=== PATIENT | female | born 1995 | race Hispanic/Latino ===

== ENCOUNTER 2018-11-05 16:07 | Emergency (ER) | payer MEDICAID ==
[~2018-11-05 16:07] MED LIST: PNV91TAB3 PO
[2018-11-05 16:35] LABS: APPEARANCE,URINE Turbid (CLEAR); BILIRUBIN,URINE Moderate (NEGATIVE); GLUCOSE, URINE (UA) Negative (NEGATIVE); KETONES,URINE >=80 mg/dL (NEGATIVE); LEUKOCYTE ESTERASE ,URINE Large (NEGATIVE); NITRATE,URINE Positive (NEGATIVE); OCCULT BLOOD,URINE Moderate (NEGATIVE); PROTEIN,URINE 300 (NEGATIVE)
[2018-11-05 16:36] LABS: COLOR,URINE Orange (YELLOW)
[2018-11-05 16:43] LABS: BACTERIA,URINE Few /HPF (None Seen)
[2018-11-05 16:44] LABS: WBC,URINE 26-50 /HPF (0-1)
[2018-11-05 16:45] LABS: SQUAMOUS EPITHELIAL CELL,UR Rare /HPF (0-2)
== END 2018-11-05 17:44 | disposition home or self-care (01) ==
LOC: EDH 16:07
DX: O23.42 Unspecified infection of urinary tract in pregnancy, second trimester (principal); Z3A.17 17 weeks gestation of pregnancy
CPT/HCPCS: 81001; 87088

== ENCOUNTER 2019-04-07 20:18 | Observation (INO) | payer MEDICAID ==
[2019-04-07 21:34] LABS: APPEARANCE,URINE Clear (CLEAR); BILIRUBIN,URINE Small (NEGATIVE); COLOR,URINE Dark Yellow (YELLOW); GLUCOSE, URINE (UA) Negative (NEGATIVE); KETONES,URINE Negative (NEGATIVE); LEUKOCYTE ESTERASE ,URINE Moderate (NEGATIVE); NITRATE,URINE Negative (NEGATIVE); OCCULT BLOOD,URINE Negative (NEGATIVE); PH,URINE 6.5 (5.0-8.0); PROTEIN,URINE Negative (NEGATIVE)
[2019-04-07 22:20] LABS: BACTERIA,URINE Few /HPF (None Seen); MUCUS,URINE Few LPF (None Seen); RBC,URINE None Seen /HPF (0-1)
== END 2019-04-07 22:00 | disposition home or self-care (01) ==
LOC: EDH 20:18 → LDH 20:19
DX: O26.893 Other specified pregnancy related conditions, third trimester (principal); R10.9 Unspecified abdominal pain; Z3A.38 38 weeks gestation of pregnancy
CPT/HCPCS: 81001; 99284; G0378 ×2

== ENCOUNTER 2020-01-20 23:16 | Emergency (ER) | payer MEDICAID, OTHER | END 2020-01-21 00:25 | disposition home or self-care (01) | LOC: EDH 23:16 | DX: O99.89 Other specified diseases and conditions complicating pregnancy, childbirth and the puerperium (principal); Z00.00 Encounter for general adult medical examination without abnormal findings; Z3A.12 12 weeks gestation of pregnancy ==

== ENCOUNTER 2020-01-30 11:59 | Emergency (ER) | payer OTHER ==
[2020-01-30 13:53] LABS: BASOPHILS % (AUTO) 0.2 % (0.0-5.0); EOSINOPHILS % (AUTO) 0.7 % (0.0-8.0); HEMATOCRIT 33.6 % (36-48); MEAN CORPUSCULAR HEMOGLOBIN 21.1 pg (27.0-33.0); MEAN CORPUSCULAR HGB CONC 30.1 g/dL (32.0-36.0); MEAN CORPUSCULAR VOLUME 70.3 fL (79-99); MONOCYTES % (AUTO) 6.7 % (3.0-13.0); NEUTROPHILS % (AUTO) 78.2 % (40.0-77.0); PLATELET COUNT (AUTO) 251 K/uL (130-400); RED BLOOD CELL COUNT(AUTO) 4.78 MIL/uL (4.00-5.50); RED CELL DISTRIBUTION WIDTH 16.5 % (11.0-15.5); WHITE BLOOD COUNT (AUTO) 8.1 K/uL (4.8-10.8)
[2020-01-30 14:00] LABS: CREATININE 0.5 mg/dL (0.5-1.5); POTASSIUM 3.2 mmol/L (3.5-5.1)
[2020-01-30 14:06] LABS: APPEARANCE,URINE Turbid (CLEAR); BILIRUBIN,URINE Negative (NEGATIVE); COLOR,URINE Yellow (YELLOW); GLUCOSE, URINE (UA) Negative (NEGATIVE); KETONES,URINE Negative (NEGATIVE); LEUKOCYTE ESTERASE ,URINE Large (NEGATIVE); NITRATE,URINE Positive (NEGATIVE); OCCULT BLOOD,URINE Moderate (NEGATIVE); PH,URINE 5.5 (5.0-8.0); PROTEIN,URINE POS 2+ mg/dL (NEGATIVE); UROBILINOGEN,URINE 0.2 mg/dL (0.2-1.0)
[2020-01-30 14:14] LABS: BACTERIA,URINE Few /HPF (None Seen); RBC,URINE 0-1 /HPF (0-1); WBC,URINE >100 /HPF (0-1)
[2020-01-30 14:15] LABS: SQUAMOUS EPITHELIAL CELL,UR Rare /HPF (0-2)
[2020-01-30 14:25] LABS: ALBUMIN 3.4 g/dL (3.5-5.0); BILIRUBIN,TOTAL 0.4 mg/dL (0.2-1.0); TOTAL PROTEIN, SERUM 7.5 g/dL (6.0-8.3)
[2020-01-30] MEDS ORDERED: POTASSIUM CHLORIDE 20 MEQ ERTAB PO ONE (14:47)
== END 2020-01-30 14:53 | disposition home or self-care (01) ==
LOC: EDH 11:59
DX: O23.41 Unspecified infection of urinary tract in pregnancy, first trimester (principal); O26.891 Other specified pregnancy related conditions, first trimester; E87.6 Hypokalemia; Z79.899 Other long term (current) drug therapy; Z87.891 Personal history of nicotine dependence; Z3A.13 13 weeks gestation of pregnancy
CPT/HCPCS: 36415; 76801; 80053; 81001; 83690; 84702; 85025; 86900; 86901

== ENCOUNTER 2020-07-08 14:52 | Observation (INO) | payer MEDICAID ==
[~2020-07-08] VITALS: Ht 167.6 cm; Wt 85.3 kg
[2020-07-08] MEDS ORDERED: LACTATED RINGERS 1000ML IV PRN (15:15)
[2020-07-08 15:41] LABS: BASOPHILS % (AUTO) 0.2 % (0.0-5.0); EOSINOPHILS % (AUTO) 1.6 % (0.0-8.0); HEMATOCRIT 26.3 % (36-48); MEAN CORPUSCULAR HEMOGLOBIN 17.1 pg (27.0-33.0); MEAN CORPUSCULAR HGB CONC 27.8 g/dL (32.0-36.0); MEAN CORPUSCULAR VOLUME 61.6 fL (79-99); NEUTROPHILS % (AUTO) 74.5 % (40.0-77.0); NUCLEATED RED BLOOD CELLS 0.4 % (0.0-0.19); PLATELET COUNT (AUTO) 278 K/uL (130-400); RED BLOOD CELL COUNT(AUTO) 4.27 MIL/uL (4.00-5.50); RED CELL DISTRIBUTION WIDTH 18.9 % (11.0-15.5); WHITE BLOOD COUNT (AUTO) 8.6 K/uL (4.8-10.8)
[2020-07-08 15:45] LABS: APPEARANCE,URINE Clear (CLEAR); BILIRUBIN,URINE Small (NEGATIVE); COLOR,URINE Dark Yellow (YELLOW); GLUCOSE, URINE (UA) Negative (NEGATIVE); KETONES,URINE Negative (NEGATIVE); LEUKOCYTE ESTERASE ,URINE Small (NEGATIVE); NITRATE,URINE Negative (NEGATIVE); OCCULT BLOOD,URINE Negative (NEGATIVE); PROTEIN,URINE Trace mg/dL (NEGATIVE)
[2020-07-08 15:50] LABS: AMPHET/METH SCREEN,URINE NEGATIVE (NEGATIVE); BARBITURATE SCREEN, URINE NEGATIVE (NEGATIVE); BENZODIAZEPINES SCREEN,URINE NEGATIVE (NEGATIVE); CANNABINOID SCREEN,URINE NEGATIVE (NEGATIVE); COCAINE SCREEN,URINE NEGATIVE (NEGATIVE); OPIATE SCREEN,URINE NEGATIVE (NEGATIVE); PHENCYCLIDINE SCREEN,URINE NEGATIVE (NEGATIVE)
[2020-07-08 15:53] LABS: CREATININE 0.5 mg/dL (0.5-1.5); POTASSIUM 3.8 mmol/L (3.5-5.1)
[2020-07-08 15:54] LABS: BACTERIA,URINE Moderate /HPF (None Seen)
[2020-07-08 15:54] LABS: INR 0.87 (0.85-1.15); PARTIAL THROMBOPLASTIN TIME 23.3 SEC (26.3-35.5); PROTHROMBIN TIME 9.4 SEC (9.6-11.6)
[2020-07-08 15:55] LABS: MUCUS,URINE Moderate LPF (None Seen); SQUAMOUS EPITHELIAL CELL,UR Many /HPF (0-2)
[2020-07-08 15:58] LABS: ALBUMIN 2.5 g/dL (3.5-5.0); BILIRUBIN,TOTAL 0.5 mg/dL (0.2-1.0); TOTAL PROTEIN, SERUM 6.8 g/dL (6.0-8.3); URIC ACID 1.8 mg/dL (2.6-7.2)
[2020-07-08 16:00] VITALS: BP 137/88
== END 2020-07-08 16:46 | disposition home or self-care (01) ==
LOC: EDH 14:52 → LDH 14:53
PROVIDERS: ADMIT Obstetrics & Gynecology; ATTEND Obstetrics & Gynecology
DX: O26.893 Other specified pregnancy related conditions, third trimester (principal); R03.0 Elevated blood-pressure reading, without diagnosis of hypertension; Z3A.36 36 weeks gestation of pregnancy
CPT/HCPCS: 36415; 80053; 80305; 81001; 84550; 85025; 85384; 85610; 85730; 87088; 99284; G0378 ×2

== ENCOUNTER 2020-07-25 19:51 | Observation (INO) | payer MEDICAID ==
[~2020-07-25] VITALS: Ht 167.6 cm; Wt 89.8 kg
[2020-07-25 20:28] VITALS: BP 134/91
[2020-07-25 20:30] LABS: APPEARANCE,URINE Cloudy (CLEAR); BILIRUBIN,URINE Negative (NEGATIVE); COLOR,URINE Yellow (YELLOW); GLUCOSE, URINE (UA) Negative (NEGATIVE); KETONES,URINE Negative (NEGATIVE); LEUKOCYTE ESTERASE ,URINE Moderate (NEGATIVE); NITRATE,URINE Negative (NEGATIVE); OCCULT BLOOD,URINE Negative (NEGATIVE); PROTEIN,URINE Negative (NEGATIVE)
[2020-07-25 20:39] LABS: BACTERIA,URINE Few /HPF (None Seen); RBC,URINE 0-1 /HPF (0-1); SQUAMOUS EPITHELIAL CELL,UR Moderate /HPF (0-2)
[2020-07-25 20:40] LABS: YEAST,URINE BUDDING Few /HPF (None Seen)
[2020-07-25 20:41] LABS: MUCUS,URINE Rare LPF (None Seen)
== END 2020-07-25 21:25 | disposition home or self-care (01) ==
LOC: EDH 19:51 → LDH 20:04
PROVIDERS: ADMIT Obstetrics & Gynecology; ATTEND Obstetrics & Gynecology
DX: O26.893 Other specified pregnancy related conditions, third trimester (principal); O62.9 Abnormality of forces of labor, unspecified; R10.2 Pelvic and perineal pain; N89.8 Other specified noninflammatory disorders of vagina; Z3A.38 38 weeks gestation of pregnancy
CPT/HCPCS: 81001; 87088; 99284; G0378

== ENCOUNTER 2020-07-27 22:37 | Inpatient (IN) | payer MEDICAID ==
[~2020-07-27] VITALS: Ht 167.6 cm; Wt 89.8 kg
[2020-07-27] MEDS ORDERED: AMPICILLIN 2GM+NS 100ML 100 ML IV SCH (22:45)
[2020-07-27] MEDS ORDERED: OXYTOCIN-LR 20 UNITS/1000 ML 1,000 ML IV SCH (22:45)
[2020-07-27 23:30] VITALS: BP 123/82
[2020-07-27 23:30] LABS: BILIRUBIN,URINE Small (NEGATIVE); COLOR,URINE Dark Yellow (YELLOW); GLUCOSE, URINE (UA) Negative (NEGATIVE); KETONES,URINE Trace mg/dL (NEGATIVE); LEUKOCYTE ESTERASE ,URINE Trace (NEGATIVE); NITRATE,URINE Negative (NEGATIVE); OCCULT BLOOD,URINE Negative (NEGATIVE); PROTEIN,URINE Trace mg/dL (NEGATIVE)
[2020-07-27 23:32] LABS: APPEARANCE,URINE HAZY (CLEAR)
[2020-07-27] MEDS: LACTATED RINGERS 1000ML 1,000 ML IV PRN (23:32)
[2020-07-27 23:45] LABS: MEAN CORPUSCULAR HEMOGLOBIN 18.9 pg (27.0-33.0); MEAN CORPUSCULAR HGB CONC 28.3 g/dL (32.0-36.0); MEAN CORPUSCULAR VOLUME 66.7 fL (79-99); NUCLEATED RED BLOOD CELLS 0.8 % (0.0-0.19); PLATELET COUNT (AUTO) 259 K/uL (130-400); RED BLOOD CELL COUNT(AUTO) 4.35 MIL/uL (4.00-5.50); RED CELL DISTRIBUTION WIDTH 26.4 % (11.0-15.5); WHITE BLOOD COUNT (AUTO) 9.2 K/uL (4.8-10.8)
[2020-07-27 23:57] LABS: BACTERIA,URINE Few /HPF (None Seen); MUCUS,URINE Few LPF (None Seen); WBC,URINE 0-1 /HPF (0-1)
[2020-07-28 00:44] LABS: PLATELET MORPHOLOGY LARGE PLTS PRESENT
[2020-07-28 00:50] LABS: AMPHET/METH SCREEN,URINE NEGATIVE (NEGATIVE); BARBITURATE SCREEN, URINE NEGATIVE (NEGATIVE); BENZODIAZEPINES SCREEN,URINE NEGATIVE (NEGATIVE); CANNABINOID SCREEN,URINE NEGATIVE (NEGATIVE); COCAINE SCREEN,URINE NEGATIVE (NEGATIVE); OPIATE SCREEN,URINE NEGATIVE (NEGATIVE); PHENCYCLIDINE SCREEN,URINE NEGATIVE (NEGATIVE)
[2020-07-28] MEDS: AMPICILLIN 1GM+NS 50ML 50 ML IV SCH ×2 (03:32→07:30)
[2020-07-28] MEDS: LACTATED RINGERS 1000ML 1,000 ML IV PRN (03:37)
[2020-07-28] MEDS ORDERED: EPHEDRINE SULFATE 50 MG/ML AMPULE IVP PRN (04:15)
[2020-07-28] MEDS ORDERED: NALOXONE HCL 0.4 MG/1 ML ML IV PRN (04:15)
[2020-07-28] MEDS ORDERED: MEPERIDINE-PF 25 MG/ML SYG IVP PRN (04:15)
[2020-07-28] MEDS ORDERED: LACTATED RINGERS 500 ML 500 ML IV PRN (04:15)
[2020-07-28] MEDS ORDERED: ROPIVACAINE 0.2% 100ML VIAL 100 ML EP SCH ×2 (04:15)
[2020-07-28] MEDS ORDERED: PROMETHAZINE HCL 25 MG/ML 1ML AMPULE IM PRN (04:15)
[2020-07-28] MEDS ORDERED: OXYTOCIN 10 USP UNITS/ML 20 UNIT in LACTATED RINGERS 1000ML 1,000 ML IV SCH (07:00)
[2020-07-28] MEDS ORDERED: MISOPROSTOL 200 MCG TABLET ONE (10:26)
[2020-07-28] MEDS ORDERED: METHYLERGONOVINE MALEATE 0.2 MG/1 ML ML ONE (10:27)
[2020-07-28] MEDS ORDERED: MISOPROSTOL 200 MCG TABLET PR SCH (11:45)
[2020-07-28] MEDS ORDERED: DIPH,PERTUSS(ACELL),TET VAC/PF 0.5 ML VIAL IM PRN (11:45)
[2020-07-28] MEDS ORDERED: ACETAMINOPHEN 325 MG TAB PO PRN (11:45)
[2020-07-28] MEDS ORDERED: OXYTOCIN-LR 20 UNITS/1000 ML 1,000 ML IV SCH (11:45)
[2020-07-28] MEDS ORDERED: LANOLIN 30GM OINTMENT TP PRN (11:45)
[2020-07-28] MEDS ORDERED: BENZOCAINE/LANOLIN/ALOE VERA 60 ML AEROSOL TP PRN (11:45)
[2020-07-28] MEDS ORDERED: MEASLES/MUMPS/RUBELLA VACCINE, LIVE 0.5 ML/VIAL SQ PRN (11:45)
[2020-07-28] MEDS ORDERED: ACETAMINOPHEN-CODEINE 300/30MG TAB PO PRN (11:45)
[2020-07-28] MEDS ORDERED: WITCH HAZEL 1 PAD TP PRN (11:45)
[2020-07-28] MEDS ORDERED: METHYLERGONOVINE MALEATE 0.2 MG/1 ML ML IM SCH (13:30)
[2020-07-28 14:19] VITALS: BP 138/84
[2020-07-28] MEDS ORDERED: PREN-64 PO (14:34)
[2020-07-28] MEDS ORDERED: IRON-23 PO (14:34)
[2020-07-28 15:46] VITALS: BP 126/75
[2020-07-28] MEDS: IBUPROFEN 600 MG TABLET PO PRN (15:52)
--- NOTE | 2020-07-28 17:43 | NUR ---
REPORT GIVEN TO SHELEA BURNETTEN
--- NOTE | 2020-07-28 17:55 | NUR ---
PT TRANSFERRED TO [facility] IN STABLE CONDITION VIA WHEELCHAIR. PT ACCOMPANIED BY NURSE, PODIATRY TEACHER, AND FAMILY MEMBER. PT LEFT WITH ALL BELONGINGS.
[2020-07-28 18:10] VITALS: BP 146/78
[2020-07-28 19:21] VITALS: BP 126/81
[2020-07-28] MEDS: DOCUSATE SODIUM 100 MG CAP PO SCH (21:02)
[2020-07-28 23:20] VITALS: BP 119/72
[2020-07-29 03:38] VITALS: BP 134/81
[2020-07-29] MEDS: IBUPROFEN 600 MG TABLET PO PRN ×2 (03:42→09:23)
[2020-07-29 06:34] LABS: HEMATOCRIT 28.7 % (36-48); MEAN CORPUSCULAR HEMOGLOBIN 18.6 pg (27.0-33.0); MEAN CORPUSCULAR HGB CONC 27.5 g/dL (32.0-36.0); MEAN CORPUSCULAR VOLUME 67.7 fL (79-99); RED BLOOD CELL COUNT(AUTO) 4.24 MIL/uL (4.00-5.50); RED CELL DISTRIBUTION WIDTH 26.6 % (11.0-15.5); WHITE BLOOD COUNT (AUTO) 9.9 K/uL (4.8-10.8)
[2020-07-29 07:31] VITALS: BP 111/80
--- NOTE | 2020-07-29 08:36 | NUR ---
referral for "Has a CPS recently closed case" BENJAMIN met with pt. who is alert, oriented, calm and cooperative. Pt's mother is at bedside. Pt. reports that she is single and that this is her seventh . Pt. resides at home with three children ages 8y, 3y and 1y being cared for by her sister and reportedly current with immunizations under [facility]. Other children ages 10y, 6y, and 5y reportedly reside with their father. Pt. reported that she is not currently employed but was employed in [employer] in the past. Pt's mother is financially supportive when needed. Pt. admits to history of CPS after it was reported that she left her children in vehicle unattended while she went in to the grocery store, citing that case is now closed. Pt. verbalized an understanding to dangers of leaving children in vehicle including and that CPS has provided numerous resources for her. Pt. denied any history of domestic violence, denied any use of illicit substances, etoh or tobacco. There are no smokers in the home. Pt. denied any history of PPD and verbalized an understanding of PPD; aware of when to seek professional help. Pt. denied any history of mental illness, denied thoughts of harm to self or others. Pt. and children reside in government assisted home and all utilities reportedly connected. Pt. has carseat and essentials for . Benefits in place include Medicaid, WIC and Food [place] 520/month. Pt. reported that her mother and siblings will assist with care once discharged, stating that her mother is a strong support system. Pt's mother will provide transportation home at discharge. Pt. denied any needs or concerns. Pt. and to be discharged home when medically cleared. BENJAMIN contacted CPS and it is confirmed that pt.'s case is closed. Addendum: 07/29/20 at 0855 by ROJELIO SAMAYOA Amended: Links added.
[2020-07-29] MEDS: DOCUSATE SODIUM 100 MG CAP PO SCH (09:23)
[2020-07-29 11:38] VITALS: BP 113/59
[2020-07-29 12:11] LABS: HEPATITIS Bs ANTIGEN SCREEN P Negative (Negative)
--- NOTE | 2020-07-29 12:50 | NUR ---
PATIENT LEFT UNIT VIA WHEELCHAIR WITH BABY IN ARMS. PERSONAL VEHICLE USED FOR TRANSPORTATION ACCOMPANIED BY FAMILY. BABY SECURE IN CARSEAT. NO COMPLAINTS OR CONCERNS ADDRESSED FROM PATIENT ON DISCHARGE.
== END 2020-07-29 12:50 | disposition home or self-care (01) | DRG 560 ==
LOC: LDH 22:37 → WSH 07-28 18:05
PROVIDERS: ADMIT Obstetrics & Gynecology; ATTEND Obstetrics & Gynecology
PROC: 10E0XZZ Delivery of Products of Conception, External Approach (ICD-10-PCS; principal; 2020-07-28)
PROC: 10907ZC Drainage of Amniotic Fluid, Therapeutic from Products of Conception, Via Natural or Artificial Opening (ICD-10-PCS; 2020-07-28)
PROC: 3E0R3BZ Introduction of Anesthetic Agent into Spinal Canal, Percutaneous Approach (ICD-10-PCS; 2020-07-28)
PROC: 00HU33Z Insertion of Infusion Device into Spinal Canal, Percutaneous Approach (ICD-10-PCS; 2020-07-28)
PROC: 3E033VJ Introduction of Other Hormone into Peripheral Vein, Percutaneous Approach (ICD-10-PCS; 2020-07-28)
PROC: 3E0234Z Introduction of Serum, Toxoid and Vaccine into Muscle, Percutaneous Approach (ICD-10-PCS; 2020-07-28)
PROC: 3E0134Z Introduction of Serum, Toxoid and Vaccine into Subcutaneous Tissue, Percutaneous Approach (ICD-10-PCS; 2020-07-28)
DX: O99.824 Streptococcus B carrier state complicating childbirth (principal); O99.02 Anemia complicating childbirth; D64.9 Anemia, unspecified; Z3A.39 39 weeks gestation of pregnancy; Z37.0 Single live birth; Z23 Encounter for immunization
CPT/HCPCS: 36415; 80305; 81001; 85027; 86592; 86850; 86900; 86901; 87088; 87340; A4314; A4606; G0378; J0290; J2210; J2590; J2795; J7120

== ENCOUNTER 2022-06-29 13:09 | Observation (INO) | payer MEDICAID ==
[~2022-06-29] VITALS: Ht 167.6 cm; Wt 88.9 kg
[~2022-06-29 13:09] MED LIST changes: +IRON-23 PO; +PREN-64 PO
[2022-06-29 14:03] LABS: BASOPHILS % (AUTO) 0.4 % (0.0-5.0); EOSINOPHILS % (AUTO) 2.3 % (0.0-8.0); HEMATOCRIT 26.7 % (36-48); LYMPHOCYTES % (AUTO) 12.1 % (21.0-51.0); MEAN CORPUSCULAR HEMOGLOBIN 17.7 pg (27.0-33.0); MEAN CORPUSCULAR HGB CONC 28.1 g/dL (32.0-36.0); MONOCYTES % (AUTO) 6.4 % (3.0-13.0); NEUTROPHILS % (AUTO) 77.9 % (40.0-77.0); NUCLEATED RED BLOOD CELLS 0.3 % (0.0-0.19); PLATELET COUNT (AUTO) 243 K/uL (130-400); RED BLOOD CELL COUNT(AUTO) 4.24 MIL/uL (4.00-5.50); WHITE BLOOD COUNT (AUTO) 9.7 K/uL (4.8-10.8)
[2022-06-29 14:10] LABS: CREATININE 0.5 mg/dL (0.5-1.5); POTASSIUM 4.1 mmol/L (3.5-5.1)
[2022-06-29 14:12] LABS: INR 0.93 (0.85-1.15); PROTHROMBIN TIME 9.3 SEC (9.6-11.6)
[2022-06-29 14:14] LABS: APPEARANCE,URINE CLEAR (CLEAR); BILIRUBIN,URINE NEGATIVE (NEGATIVE); COLOR,URINE YELLOW (YELLOW); GLUCOSE, URINE (UA) NEGATIVE (NEGATIVE); KETONES,URINE NEGATIVE (NEGATIVE); LEUKOCYTE ESTERASE ,URINE NEGATIVE (NEGATIVE); NITRATE,URINE NEGATIVE (NEGATIVE); OCCULT BLOOD,URINE NEGATIVE (NEGATIVE); PH,URINE 6.5 (5.0-8.0); PROTEIN,URINE NEGATIVE (NEGATIVE)
[2022-06-29 14:14] LABS: PARTIAL THROMBOPLASTIN TIME 22.5 SEC (26.3-35.5)
[2022-06-29 14:15] LABS: ALBUMIN 2.5 g/dL (3.5-5.0); TOTAL PROTEIN, SERUM 6.6 g/dL (6.0-8.3); URIC ACID 2.7 mg/dL (2.6-7.2)
[2022-06-29 14:42] VITALS: BP 129/83
[2022-06-29 14:46] LABS: AMPHET/METH SCREEN,URINE NEGATIVE (NEGATIVE); BARBITURATE SCREEN, URINE NEGATIVE (NEGATIVE); BENZODIAZEPINES SCREEN,URINE NEGATIVE (NEGATIVE); CANNABINOID SCREEN,URINE NEGATIVE (NEGATIVE); COCAINE SCREEN,URINE NEGATIVE (NEGATIVE); PHENCYCLIDINE SCREEN,URINE NEGATIVE (NEGATIVE)
[2022-07-02 15:11] LABS: OPIATES SCREEN URINE Negative ng/mL (Cutoff=300)
== END 2022-06-29 15:25 | disposition home or self-care (01) ==
LOC: LDH 13:09
PROVIDERS: ADMIT Obstetrics & Gynecology; ATTEND Obstetrics & Gynecology
DX: O26.893 Other specified pregnancy related conditions, third trimester (principal); R03.0 Elevated blood-pressure reading, without diagnosis of hypertension; O99.323 Drug use complicating pregnancy, third trimester; F14.90 Cocaine use, unspecified, uncomplicated; Z3A.38 38 weeks gestation of pregnancy; Z87.891 Personal history of nicotine dependence
CPT/HCPCS: 59025; 84550; 80053; 80305; 85025; 85384; 85610; 85730; 81003; 36415; 76819; G0378 ×2; G0379

== ENCOUNTER 2022-07-07 05:13 | Inpatient (IN) | payer MEDICAID ==
[~2022-07-07] VITALS: Ht 167.6 cm; Wt 88.9 kg
[2022-07-07] MEDS: OXYTOCIN-LR 20 UNITS/1000 ML 1,000 ML IV SCH ×4 (06:00→23:40)
[2022-07-07] MEDS ORDERED: OXYTOCIN-LR 20 UNITS/1000 ML 1,000 ML IV SCH (06:00)
[2022-07-07 06:09] LABS: APPEARANCE,URINE CLEAR (CLEAR); BILIRUBIN,URINE NEGATIVE (NEGATIVE); COLOR,URINE YELLOW (YELLOW); GLUCOSE, URINE (UA) NEGATIVE (NEGATIVE); KETONES,URINE NEGATIVE (NEGATIVE); LEUKOCYTE ESTERASE ,URINE TRACE (NEGATIVE); NITRATE,URINE NEGATIVE (NEGATIVE); OCCULT BLOOD,URINE NEGATIVE (NEGATIVE); PROTEIN,URINE NEGATIVE (NEGATIVE)
[2022-07-07] MEDS: LACTATED RINGERS 1000ML 1,000 ML IV PRN ×2 (06:16→08:31)
[2022-07-07 06:18] LABS: HEMATOCRIT 25.3 % (36-48); MEAN CORPUSCULAR HEMOGLOBIN 17.5 pg (27.0-33.0); MEAN CORPUSCULAR HGB CONC 27.7 g/dL (32.0-36.0); MEAN CORPUSCULAR VOLUME 63.1 fL (79-99); NUCLEATED RED BLOOD CELLS 0.6 % (0.0-0.19); PLATELET COUNT (AUTO) 237 K/uL (130-400); RED BLOOD CELL COUNT(AUTO) 4.01 MIL/uL (4.00-5.50); RED CELL DISTRIBUTION WIDTH 19.3 % (11.0-15.5); WHITE BLOOD COUNT (AUTO) 10.3 K/uL (4.8-10.8)
[2022-07-07 06:28] VITALS: BP 122/74
[2022-07-07 06:35] LABS: BACTERIA,URINE Rare /HPF (None Seen); RBC,URINE 0-1 /HPF (0-1); SQUAMOUS EPITHELIAL CELL,UR Few /HPF (0-2)
[2022-07-07] MEDS ORDERED: AMPICILLIN 2GM+NS 100ML 100 ML IV ONE (06:41)
[2022-07-07] MEDS ORDERED: AMPICILLIN 2GM+NS 100ML 100 ML IV SCH (07:00)
[2022-07-07 07:01] VITALS: BP 131/80
[2022-07-07 07:14] LABS: AMPHET/METH SCREEN,URINE NEGATIVE (NEGATIVE); BENZODIAZEPINES SCREEN,URINE NEGATIVE (NEGATIVE); CANNABINOID SCREEN,URINE NEGATIVE (NEGATIVE); COCAINE SCREEN,URINE NEGATIVE (NEGATIVE); PHENCYCLIDINE SCREEN,URINE NEGATIVE (NEGATIVE)
[2022-07-07] MEDS ORDERED: NALOXONE HCL 0.4 MG/1 ML ML IV PRN (07:30)
[2022-07-07] MEDS ORDERED: ROPIVACAINE 0.2% 100ML VIAL 100 ML EP PRN (07:30)
[2022-07-07] MEDS ORDERED: EPHEDRINE SULFATE 50 MG/ML AMPULE IVP PRN (07:30)
[2022-07-07] MEDS ORDERED: LACTATED RINGERS 500 ML 500 ML IV PRN (07:30)
[2022-07-07 08:40] LABS: RAPID PLASMA REAGIN NONREACTIVE (NONREACTIVE)
[2022-07-07] MEDS ORDERED: AMPICILLIN 1GM+NS 50ML 50 ML IV SCH (11:00)
[2022-07-07] MEDS ORDERED: MISOPROSTOL 200 MCG TABLET ONE (14:47)
[2022-07-07] MEDS ORDERED: TRANEXAMIC ACID 1000MG/10ML ONE (14:48)
[2022-07-07] MEDS ORDERED: METHYLERGONOVINE MALEATE 0.2 MG/1 ML ML ONE (14:48)
[2022-07-07] MEDS ORDERED: LANOLIN 30GM OINTMENT TP PRN (15:30)
[2022-07-07] MEDS ORDERED: DIPH,PERTUSS(ACELL),TET VAC/PF 0.5 ML VIAL IM PRN (15:30)
[2022-07-07] MEDS ORDERED: BENZOCAINE/LANOLIN/ALOE VERA 60 ML AEROSOL TP PRN (15:30)
[2022-07-07] MEDS ORDERED: ACETAMINOPHEN 325 MG TAB PO PRN (15:30)
[2022-07-07] MEDS ORDERED: ACETAMINOPHEN WITH CODEINE 1 TAB TAB PO PRN (15:30)
[2022-07-07] MEDS ORDERED: MEASLES/MUMPS/RUBELLA VACCINE, LIVE 0.5 ML/VIAL SQ PRN (15:30)
[2022-07-07] MEDS ORDERED: WITCH HAZEL 1 PAD TP PRN (15:30)
[2022-07-07 17:33] VITALS: BP 134/85
[2022-07-07] MEDS ORDERED: PREN1TAB80 PO (17:48)
[2022-07-07 19:01] VITALS: BP 131/80
[2022-07-07] MEDS: DOCUSATE SODIUM 100 MG CAP PO SCH (21:11)
[2022-07-07] MEDS: IBUPROFEN 600 MG TABLET PO PRN (21:12)
[2022-07-07 23:30] VITALS: BP 107/66
[2022-07-08 03:06] VITALS: BP 113/78
[2022-07-08 06:41] LABS: HEMATOCRIT 25.6 % (36-48); MEAN CORPUSCULAR HEMOGLOBIN 19.1 pg (27.0-33.0); MEAN CORPUSCULAR HGB CONC 29.3 g/dL (32.0-36.0); MEAN CORPUSCULAR VOLUME 65.1 fL (79-99); NUCLEATED RED BLOOD CELLS 0.2 % (0.0-0.19); RED BLOOD CELL COUNT(AUTO) 3.93 MIL/uL (4.00-5.50); RED CELL DISTRIBUTION WIDTH 21.7 % (11.0-15.5)
[2022-07-08 07:50] VITALS: BP 124/75
[2022-07-08] MEDS: DOCUSATE SODIUM 100 MG CAP PO SCH (09:09)
[2022-07-08] MEDS: IBUPROFEN 600 MG TABLET PO PRN (09:12)
[2022-07-08] MEDS ORDERED: DOCU-116 PO (10:39)
[2022-07-08] MEDS ORDERED: IBUP-2077 PO (10:40)
[2022-07-08] MEDS ORDERED: FERS325 PO (10:45)
[2022-07-08 12:00] VITALS: BP 127/88
[2022-07-09 18:09] LABS: OPIATES SCREEN URINE Negative ng/mL (Cutoff=300)
== END 2022-07-08 15:15 | disposition home or self-care (01) | DRG 560 ==
LOC: LDH 05:13 → WSH 17:34
PROVIDERS: ADMIT Obstetrics & Gynecology; ATTEND Obstetrics & Gynecology
PROC: 10E0XZZ Delivery of Products of Conception, External Approach (ICD-10-PCS; principal; 2022-07-07)
PROC: 3E0R3BZ Introduction of Anesthetic Agent into Spinal Canal, Percutaneous Approach (ICD-10-PCS; 2022-07-07)
PROC: 30233N1 Transfusion of Nonautologous Red Blood Cells into Peripheral Vein, Percutaneous Approach (ICD-10-PCS; 2022-07-07)
PROC: 3E0P7VZ Introduction of Hormone into Female Reproductive, Via Natural or Artificial Opening (ICD-10-PCS; 2022-07-07)
PROC: 00HU33Z Insertion of Infusion Device into Spinal Canal, Percutaneous Approach (ICD-10-PCS; 2022-07-07)
DX: O99.02 Anemia complicating childbirth (principal); Z37.0 Single live birth; O98.22 Gonorrhea complicating childbirth; O69.81X0 Labor and delivery complicated by cord around neck, without compression, not applicable or unspecified; Z3A.39 39 weeks gestation of pregnancy
CPT/HCPCS: 36415; 80305; 81001; 85027; 86592; 86701; 86850; 86900; 86901; 86923; 87340; 87390; A4314; A4351; G0378; J0290; J2210; J2590; J2795; J3490; J7120; P9016